=== PATIENT | female | born 1980 | race African-American/Black ===

== ENCOUNTER 2018-04-21 14:36 | Emergency (ER) | payer OTHER ==
[~2018-04-21] VITALS: Ht 170.2 cm; Wt 65.0 kg
[2018-04-22] LABS: CLARITY URINE CLEAR (CLEAR); COLOR URINE YELLOW (YELLOW); KETONES URINE NEGATIVE (NEGATIVE); LEUKOCYTE ESTERASE URINE 2+ (NEGATIVE); NITRITE URINE NEGATIVE (NEGATIVE); OCCULT BLOOD URINE NEGATIVE (NEGATIVE); PH URINE 5.5 (4.5-8.0); PROTEIN URINE NEGATIVE (NEGATIVE); SPECIFIC GRAVITY URINE 1.006 (1.005-1.030); UROBILINOGEN URINE 0.2 E.U./dL (0.2-1.0)
[2018-04-22] MEDS ORDERED: CEPHALEXIN 250MG CAPSULE PO ONE (00:30)
[2018-04-22 01:20] VITALS: BP 121/71
[2018-04-26 04:13] LABS: CHLAMYDIA TRACHOMATIS NAA Negative (Negative); NEISSERIA GONORRHOEAE NAA Negative (Negative)
== END 2018-04-22 01:29 | disposition home or self-care (01) ==
LOC: ER 14:36
DX: N39.0 Urinary tract infection, site not specified (principal); N93.0 Postcoital and contact bleeding
CPT/HCPCS: 81025; 87491; 87591; 99283

== ENCOUNTER 2018-09-09 21:30 | Inpatient (IN) | payer MEDICAID, OTHER ==
[~2018-09-09] VITALS: Ht 170.2 cm; Wt 64.9 kg
[2018-09-09] MEDS ORDERED: SODIUM CHLORIDE 0.9% 1,000 ML IV ONE (22:57)
[2018-09-09 23:31] LABS: BASOPHILS % 0.3 % (0.0-2.0); EOSINOPHILS % 6.2 % (0.0-5.0); HEMATOCRIT. 31.3 % (36.0-48.0); HEMOGLOBIN. 10.5 g/dL (12.0-16.0); MEAN CORPUSCULAR HEMOGLOBIN 29.3 pg (28.0-32.0); MEAN CORPUSCULAR VOLUME 87.2 fL (81.0-99.0); MEAN PLATELET VOLUME 8.6 fl (7.4-10.4); MONOCYTES % 6.6 % (2.0-8.0); NEUTROPHILS % 60.9 % (40.0-76.0); PLATELET 449 x1000/uL (130-400); RED BLOOD CELL COUNT 3.59 mill/uL (4.2-5.4); RED CELL DISTRIBUTION WIDTH 12.9 % (11.6-14.6)
[2018-09-09 23:39] LABS: INR 1.1; PARTIAL THROMBOPLASTIN TIME 29.7 sec (23.4-31.0); PROTHROMBIN TIME 10.9 sec (9.6-11.0)
[2018-09-09 23:45] LABS: CHLORIDE 105 mEq/L (98-107)
[2018-09-09 23:59] LABS: B-HCG QUANTITATIVE < 1 mIU/mL (<3)
[2018-09-10 08:07] LABS: HEMATOCRIT 31.3 % (36.0-48.0); HEMOGLOBIN 10.4 g/dL (12.0-16.0); MEAN CORPUSCULAR HEMOGLOBIN 29.1 pg (28.0-32.0); MEAN CORPUSCULAR VOLUME 87.6 fL (81.0-99.0); PLATELET 437 x1000/uL (130-400); RED BLOOD CELL COUNT 3.57 mill/uL (4.2-5.4); RED CELL DISTRIBUTION WIDTH 13.2 % (11.6-14.6)
[2018-09-10 12:00] VITALS: BP 107/70
[2018-09-10] MEDS ORDERED: ACETAMINOPHEN 325MG TABLET PO PRN (12:30)
[2018-09-10] MEDS ORDERED: DOCU-138 MT (13:36)
[2018-09-10] MEDS ORDERED: LOV40 SQ (13:36)
[2018-09-10] MEDS ORDERED: FERR-71 MT (13:36)
[2018-09-10 13:45] VITALS: BP 107/70
[2018-09-10 16:00] VITALS: BP 112/63
[2018-09-10 20:00] VITALS: BP 97/61
[2018-09-11] VITALS: BP 97/51
[2018-09-11 04:00] VITALS: BP 97/58
[2018-09-11 08:00] VITALS: BP 90/55
[2018-09-11] MEDS: DOCUSATE SODIUM 100MG CAPSULE PO SCH (08:52)
[2018-09-11] MEDS: FERROUS SULFATE 325MG TABLET PO SCH (08:53)
[2018-09-11 12:00] VITALS: BP 120/57
[2018-09-11 16:00] VITALS: BP 100/60
[2018-09-11 20:00] VITALS: BP 99/58
[2018-09-11 20:23] LABS: HEMATOCRIT 27.1 % (36.0-48.0); HEMOGLOBIN 9.4 g/dL (12.0-16.0); MEAN CORPUSCULAR HEMOGLOBIN 30.1 pg (28.0-32.0); MEAN CORPUSCULAR VOLUME 86.2 fL (81.0-99.0); PLATELET 378 x1000/uL (130-400); RED BLOOD CELL COUNT 3.14 mill/uL (4.2-5.4); RED CELL DISTRIBUTION WIDTH 13.1 % (11.6-14.6)
[2018-09-12] VITALS: BP 88/62
[2018-09-12] MEDS ORDERED: NON FORMULARY PATIENT HOME MED XX ONE (01:15)
[2018-09-12] MEDS ORDERED: SODIUM CHLORIDE 0.9% 1,000 ML IV ONE (01:15)
[2018-09-12] MEDS ORDERED: IRON SUCROSE COMPLEX 200 MG in SODIUM CHLORIDE 0.9% 50 ML IV SCH (03:00)
[2018-09-12 04:00] VITALS: BP 101/57
[2018-09-12 08:00] VITALS: BP 129/72
[2018-09-12] MEDS: FERROUS SULFATE 325MG TABLET PO SCH (08:35)
[2018-09-12] MEDS: DOCUSATE SODIUM 100MG CAPSULE PO SCH (08:35)
[2018-09-12 09:59] LABS: CLARITY URINE CLEAR (CLEAR); COLOR URINE YELLOW (YELLOW); KETONES URINE NEGATIVE (NEGATIVE); LEUKOCYTE ESTERASE URINE 3+ (NEGATIVE); NITRITE URINE NEGATIVE (NEGATIVE); OCCULT BLOOD URINE 2+ (NEGATIVE); PH URINE 6.5 (4.5-8.0); PROTEIN URINE NEGATIVE (NEGATIVE); SPECIFIC GRAVITY URINE 1.016 (1.005-1.030); UROBILINOGEN URINE 0.2 E.U./dL (0.2-1.0)
[2018-09-12 12:00] VITALS: BP 92/49
[2018-09-12] MEDS ORDERED: LEVOFLOXACIN 500MG TABLET PO SCH (13:15)
[2018-09-12 14:08] VITALS: BP 92/49
== END 2018-09-12 16:17 | disposition home health service (06) | DRG 810 ==
LOC: ER 21:30 → CANBEDREQ 09-10 06:15 → ER 09-10 10:21 → 6EST 09-10 10:29 → ENRESERV 09-10 10:47
PROVIDERS: ADMIT Internal Medicine; ATTEND Internal Medicine
DX: N99.820 Postprocedural hemorrhage of a genitourinary system organ or structure following a genitourinary system procedure (principal); D64.9 Anemia, unspecified; M47.816 Spondylosis without myelopathy or radiculopathy, lumbar region; M48.00 Spinal stenosis, site unspecified; M51.36 Other intervertebral disc degeneration, lumbar region; N39.0 Urinary tract infection, site not specified; N92.0 Excessive and frequent menstruation with regular cycle; R20.2 Paresthesia of skin; Y83.6 Removal of other organ (partial) (total) as the cause of abnormal reaction of the patient, or of later complication, without mention of misadventure at the time of the procedure; Z98.891 History of uterine scar from previous surgery; Z85.41 Personal history of malignant neoplasm of cervix uteri; Z90.710 Acquired absence of both cervix and uterus; Y92.89 Other specified places as the place of occurrence of the external cause
CPT/HCPCS: 36415; 72148; 76830; 76856; 82962; 84702; 85027; 86850; 86900; 96374; 96375; 97110; 97116; 97162; 97530; 99285; J7030